=== PATIENT | female | born 1955 | race Caucasian/White ===

== ENCOUNTER 2018-12-09 21:56 | Emergency (ER) | payer SELFPAY ==
[2018-12-09 23:06] VITALS: BP 168/89
--- NOTE | 2018-12-12 19:07 | Emergency Department Report ---
Blank Doc - Documentation Documentation: A physician and/or other qualified medical personnel has recommended that the patient receive further examination and/or treatment beyond their Medical Screening Exam. The risks and benefits were explained. The patient was informed of their right to emergency care. Patient left before final disposition of their medical condition. This note has been generated by me, Dr. Ronan Deng III, MD, the Senior Communications Engineer for the emergency department. I have not seen this patient personally.
== END 2018-12-10 03:00 | disposition left against medical advice (07) ==
LOC: ED 21:56
DX: Z53.21 Procedure and treatment not carried out due to patient leaving prior to being seen by health care provider (principal)